=== PATIENT | female | born 2000 | race African-American/Black ===

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

== ENCOUNTER 2021-03-29 05:59 | Inpatient (IN) ==
[2021-03-29] MEDS ORDERED: BUTORPHANOL 2 MG/ML VIAL IV PRN (06:15)
[2021-03-29] MEDS ORDERED: ONDANSETRON 4 MG/2 ML VIAL IV PRN ×2 (06:15→18:24)
[2021-03-29] MEDS ORDERED: MEPERIDINE 50 MG/1 ML VIAL IV PRN (06:15)
[2021-03-29] MEDS ORDERED: LACTATED RINGERS 1,000 ML IV SCH (06:30)
[2021-03-29] MEDS ORDERED: OXYTOCIN/LR 20 UNIT/1,000 ML BAG IV ONE ×2 (06:31→18:24)
[2021-03-29 06:41] LABS: Basophils % 0.1 % (0.0-0.8); Eosinophils % 0.4 % (0.00-10.9); Hematocrit 37.1 VOL% (35.7-47.0); Hemoglobin 11.5 GM/DL (12.0-16.0); Immature Granulocytes % 0.4 %; Immature Granulocytes Absolute 0.03 #; Lymphocytes # 2.2 10*3/uL (1.4-4.0); Lymphocytes % 32.8 % (21.3-54.2); Mean Corpuscular Volume 82.3 FL (87-102); Mean Platelet Volume 9.8 FL (9.6-12.0); Monocytes % 5.2 % (1.7-12.7); Neutrophils % 61.1 % (38.7-73.9); Platelet Count 252 T/CUMM (130-400); Red Blood Count 4.51 MC/CUMM (3.8-5.5); Red Cell Distribution Width 21.6 % (9.3-17.3); White Blood Count 6.7 T/CUMM (4-12)
[2021-03-29] MEDS: OXYTOCIN/LR 20 UNIT/1,000 ML BAG IV SCH ×2 (06:50→17:17)
[2021-03-29 06:54] LABS: Alanine Aminotransferase 11 U/L (13-56); Albumin 2.5 G/DL (3.4-5.0); Alkaline Phosphatase 167 U/L (45-117); Aspartate Amino Transferase 11 U/L (0-37); Bilirubin,Total < 0.39 MG/DL (0.20-1.00); Blood Urea Nitrogen 4 MG/DL (7-18); Calcium 9.1 MG/DL (8.5-10.1); Carbon Dioxide 18 MMOL/L (21-32); Estimated Glom Filtration Rate 171 ML/MIN; Glucose 122 MG/DL (74-106); Potassium 3.5 MMOL/L (3.5-5.1); Sodium 136 MMOL/L (136-145); Total Protein 6.8 G/DL (6.4-8.2)
[2021-03-29] MEDS: CLINDAMYCIN INJ 900 MG/50 ML PREMIX IV SCH ×2 (07:17→16:04)
[2021-03-29] MEDS ORDERED: hydrOXYzine HCL 25 MG/1 ML VIAL IM PRN (09:09)
[2021-03-29] MEDS ORDERED: FAMOTIDINE 20 MG/2 ML VIAL IV ONE (09:09)
[2021-03-29] MEDS ORDERED: NALOXONE 0.4 MG/ML VIAL IV PRN (09:09)
[2021-03-29] MEDS ORDERED: LACTATED RINGERS 1,000 ML IV ONE (09:09)
[2021-03-29] MEDS ORDERED: PROMETHAZINE 25 MG/1 ML VIAL IM ONE (09:09)
[2021-03-29] MEDS ORDERED: ePHEDrine 50 MG/ML VIAL IV PRN (09:09)
[2021-03-29] MEDS ORDERED: CITRIC ACID/SODIUM CITRATE 30 ML UDCUP PO ONE (09:09)
[2021-03-29] MEDS ORDERED: diphenhydrAMINE 50 MG/1 ML VIAL IV PRN ×2 (09:09)
[2021-03-29] MEDS ORDERED: fentaNYL 2 MCG/ROPIV 0.2% EPID 100 ML EPIDURAL SCH (09:30)
[2021-03-29 11:05] LABS: Bilirubin,Urine Negative (Negative); Blood, Urine Negative (Negative); Glucose,Urine (UA) Negative (Negative); Ketones,Urine 5 mg/dL (Negative); Mucus,Urine Occasional /LPF (Occasional); Nitrite,Urine Negative (Negative); Protein,Urine Negative; RBC,Urine <1 /HPF (0-4); Squamous Epithelial Cell,Urine Occasional /HPF (0-10); Urine Appearance CLEAR (Clear); Urine Color Straw (Yellow); Urine Specific Gravity 1.002 (1.001-1.035); Urine Urobilinogen < 2.0 EU/DL (<2.0)
[2021-03-29] MEDS ORDERED: METHYLERGONOVINE 0.2 MG/1 ML AMP ONE (14:07)
[2021-03-29] MEDS ORDERED: miSOPROStoL 200 MCG TABLET ONE (14:07)
[2021-03-29] MEDS ORDERED: CARBOPROST TROMETHAMINE 250 MCG/ML AMP IM ONE (14:07)
[2021-03-29 14:47] LABS: Cord Venous Blood HCO3 21.8 MMOL/L; Cord Venous Blood PCO2 36.8 MMHG; Cord Venous Blood PO2 28.6 MMHG
[2021-03-29] MEDS: IBUPROFEN 800 MG TABLET PO PRN (18:11)
[2021-03-29] MEDS ORDERED: MEASLES/MUMPS/RUBELLA VACCINE 0.5 ML VIAL SUBCUT ONE (18:24)
[2021-03-29] MEDS ORDERED: ACETAMINOPHEN 325 MG TABLET PO PRN (18:24)
[2021-03-29] MEDS ORDERED: RHO(D) IMMUNE GLOBULIN 300 MCG SYRINGE IM ONE (18:24)
[2021-03-29] MEDS ORDERED: oxyCODONE/ACETAMINOPHEN 5-325 MG TABLET PO PRN ×2 (18:24)
[2021-03-29] MEDS ORDERED: BENZOCAINE 20%/MENTHOL 0.5% SPRAY 56 GM CAN TOP PRN (18:24)
[2021-03-29] MEDS ORDERED: DIPH/TET/ACEL PERT BOOSTER VACCINE 0.5 ML VIAL IM ONE (18:24)
[2021-03-29] MEDS ORDERED: IBUPROFEN 800 MG TABLET PO PRN (18:24)
[2021-03-29] MEDS ORDERED: LANOLIN 50% CREAM 0.3 OZ TUBE TOP PRN (18:24)
[2021-03-29] MEDS ORDERED: HYDROCORTISONE 2.5% RECTAL CREAM 30 GM TUBE TOP PRN (18:24)
[2021-03-29] MEDS ORDERED: WITCH HAZEL PADS 100/JAR TOP PRN (18:24)
[2021-03-29] MEDS ORDERED: BISACODYL 10 MG SUPP RECTAL PRN (18:24)
[2021-03-29] MEDS: DOCUSATE SODIUM 100 MG CAPSULE PO SCH (21:48)
[2021-03-30 05:55] LABS: Basophils % 0.4 % (0.0-0.8); Eosinophils % 0.5 % (0.00-10.9); Hematocrit 33.2 VOL% (35.7-47.0); Hemoglobin 10.4 GM/DL (12.0-16.0); Immature Granulocytes % 0.2 %; Immature Granulocytes Absolute 0.02 #; Lymphocytes # 2.6 10*3/uL (1.4-4.0); Lymphocytes % 31.8 % (21.3-54.2); Mean Corpuscular HGB Conc 31.3 GM/DL (32-36); Mean Corpuscular Volume 82.6 FL (87-102); Mean Platelet Volume 9.8 FL (9.6-12.0); Monocytes % 6.1 % (1.7-12.7); Platelet Count 213 T/CUMM (130-400); Red Blood Count 4.02 MC/CUMM (3.8-5.5); Red Cell Distribution Width 21.9 % (9.3-17.3); White Blood Count 8.1 T/CUMM (4-12)
[2021-03-30] MEDS: DOCUSATE SODIUM 100 MG CAPSULE PO SCH ×2 (08:19→20:37)
[2021-03-30] MEDS: IBUPROFEN 800 MG TABLET PO PRN (23:22)
[2021-03-31 07:21] VITALS: BP 104/56
[2021-03-31] MEDS: DOCUSATE SODIUM 100 MG CAPSULE PO SCH (08:46)
== END 2021-03-31 11:15 | disposition home or self-care (01) | DRG 807 ==
LOC: N.LD 05:59 → N.OB 17:53
PROVIDERS: ADMIT Specialist; ATTEND Specialist

== ENCOUNTER 2022-03-03 05:22 | Inpatient (IN) ==
[2022-03-03] MEDS ORDERED: TRANEXAMIC ACID 1,000 MG in SODIUM CHLORIDE 0.9% 100 ML IV PRN (05:51)
[2022-03-03] MEDS ORDERED: METHYLERGONOVINE 0.2 MG/1 ML AMP IM PRN (05:51)
[2022-03-03] MEDS ORDERED: miSOPROStoL 200 MCG TABLET RECTAL PRN (05:51)
[2022-03-03] MEDS ORDERED: ONDANSETRON 4 MG/2 ML VIAL IV PRN (05:51)
[2022-03-03] MEDS ORDERED: CARBOPROST TROMETHAMINE 250 MCG/ML AMP IM PRN (05:51)
[2022-03-03] MEDS ORDERED: OXYTOCIN/LR 20 UNIT/1,000 ML BAG IV ONE ×4 (05:51→14:00)
[2022-03-03 06:14] LABS: Basophils % 0.2 % (0.0-0.8); Eosinophils % 0.7 % (0.00-10.9); Hematocrit 36.5 VOL% (35.7-47.0); Hemoglobin 11.8 GM/DL (12.0-16.0); Immature Granulocytes % 0.3 %; Immature Granulocytes Absolute 0.02 #; Lymphocytes # 2.2 10*3/uL (1.4-4.0); Lymphocytes % 36.4 % (21.3-54.2); Mean Corpuscular HGB Conc 32.3 GM/DL (32-36); Mean Corpuscular Volume 82.8 FL (87-102); Mean Platelet Volume 10.4 FL (9.6-12.0); Monocytes # 0.4 10*3/uL (0.11-0.8); Monocytes % 6.5 % (1.7-12.7); Neutrophils % 55.9 % (38.7-73.9); Platelet Count 229 T/CUMM (130-400); Red Blood Count 4.41 MC/CUMM (3.8-5.5); Red Cell Distribution Width 16.7 % (9.3-17.3)
[2022-03-03 06:29] LABS: Albumin 2.7 G/DL (3.4-5.0); Bilirubin,Total 0.5 MG/DL (0.20-1.00); Calcium 9.4 MG/DL (8.5-10.1); Osmolality,Calculated 269.8 MOS/KG (273-304); Potassium 3.7 MMOL/L (3.5-5.1); Total Protein 6.9 G/DL (6.4-8.2)
[2022-03-03] MEDS ORDERED: MEPERIDINE 50 MG/1 ML VIAL IV PRN (06:30)
[2022-03-03] MEDS ORDERED: SODIUM CHLORIDE 0.9% 100 ML IV ONE (07:05)
[2022-03-03] MEDS ORDERED: TRANEXAMIC ACID 1,000 MG/10 ML VIAL ONE (07:05)
[2022-03-03] MEDS ORDERED: METHYLERGONOVINE 0.2 MG/1 ML AMP ONE (07:05)
[2022-03-03] MEDS ORDERED: CARBOPROST TROMETHAMINE 250 MCG/ML AMP IM ONE (07:05)
[2022-03-03] MEDS ORDERED: miSOPROStoL 200 MCG TABLET ONE (07:05)
[2022-03-03] MEDS: LACTATED RINGERS 1,000 ML IV SCH ×2 (07:10→08:38)
[2022-03-03] MEDS ORDERED: diphenhydrAMINE 50 MG/1 ML VIAL IV PRN ×2 (07:23)
[2022-03-03] MEDS ORDERED: hydrOXYzine HCL 25 MG/1 ML VIAL IM PRN (07:23)
[2022-03-03] MEDS ORDERED: CITRIC ACID/SODIUM CITRATE 30 ML UDCUP PO ONE (07:23)
[2022-03-03] MEDS ORDERED: NALOXONE 0.4 MG/ML VIAL IV PRN (07:23)
[2022-03-03] MEDS ORDERED: FAMOTIDINE 20 MG/2 ML VIAL IV ONE (07:23)
[2022-03-03] MEDS ORDERED: ePHEDrine 50 MG/ML VIAL IV PRN (07:23)
[2022-03-03] MEDS ORDERED: PROMETHAZINE 25 MG/1 ML VIAL IM ONE (07:23)
[2022-03-03] MEDS ORDERED: LACTATED RINGERS 1,000 ML IV SCH ×2 (07:30)
[2022-03-03] MEDS ORDERED: fentaNYL 2 MCG/ROPIV 0.2% EPID 100 ML EPIDURAL SCH (07:30)
[2022-03-03] MEDS ORDERED: TERBUTALINE 1 MG/1 ML VIAL SUBCUT ONE (09:00)
[2022-03-03] MEDS ORDERED: TERBUTALINE 1 MG/1 ML VIAL ONE (09:31)
[2022-03-03 09:50] LABS: Cord Arterial Blood HCO3 18.2 MMOL/L
[2022-03-03 09:53] LABS: Bacteria,Urine Occasional /HPF (Few); Mucus,Urine Many /LPF (Occasional); RBC,Urine 2 /HPF (0-4); Squamous Epithelial Cell,Urine Occasional /HPF (0-10)
[2022-03-03 09:53] LABS: Cord Venous Blood HCO3 19.7 MMOL/L; Cord Venous Blood PCO2 57.8 MMHG; Cord Venous Blood PO2 < 17
[2022-03-03 09:54] LABS: Bilirubin,Urine Small mg/dL (Negative); Blood, Urine Negative (Negative); Glucose,Urine (UA) Negative (Negative); Ketones,Urine >160 mg/dL (Negative); Nitrite,Urine Negative (Negative); Protein,Urine 30 mg/dL (Negative); Urine Appearance Clear (Clear); Urine Color Yellow (Yellow); Urine pH 6.5 (4.5-8.0)
[2022-03-03 09:58] LABS: Cord Arterial Blood HCO3 20.8 MMOL/L
[2022-03-03 10:00] LABS: Cord Venous Blood HCO3 21.8 MMOL/L; Cord Venous Blood PCO2 42.3 MMHG; Cord Venous Blood PO2 36.6
[2022-03-03] MEDS: IBUPROFEN 800 MG TABLET PO PRN ×2 (12:32→21:26)
[2022-03-03] MEDS: DOCUSATE SODIUM 100 MG CAPSULE PO PRN (21:26)
[2022-03-04] MEDS: IBUPROFEN 800 MG TABLET PO PRN ×2 (04:59→21:32)
[2022-03-04 05:34] LABS: Basophils % 0.4 % (0.0-0.8); Eosinophils % 0.4 % (0.00-10.9); Hematocrit 35.5 VOL% (35.7-47.0); Hemoglobin 11.2 GM/DL (12.0-16.0); Immature Granulocytes % 0.3 %; Immature Granulocytes Absolute 0.02 #; Lymphocytes # 2.7 10*3/uL (1.4-4.0); Lymphocytes % 39.6 % (21.3-54.2); Mean Corpuscular HGB Conc 31.5 GM/DL (32-36); Mean Corpuscular Volume 84.3 FL (87-102); Mean Platelet Volume 10.5 FL (9.6-12.0); Monocytes # 0.5 10*3/uL (0.11-0.8); Monocytes % 6.7 % (1.7-12.7); Neutrophils % 52.6 % (38.7-73.9); Platelet Count 176 T/CUMM (130-400); Red Blood Count 4.21 MC/CUMM (3.8-5.5); Red Cell Distribution Width 16.8 % (9.3-17.3); White Blood Count 6.7 T/CUMM (4-12)
[2022-03-04] MEDS ORDERED: WITCH HAZEL PADS 100/JAR TOP PRN (12:45)
[2022-03-04] MEDS ORDERED: HYDROCORTISONE 25 MG SUPP RECTAL PRN (12:45)
[2022-03-04] MEDS: DOCUSATE SODIUM 100 MG CAPSULE PO PRN (21:26)
[2022-03-05] MEDS ORDERED: SIMETHICONE CHEW 80 MG TABLET PO PRN
[2022-03-05] MEDS ORDERED: DIBUCAINE 1% OINT 28 GM TUBE TOP PRN (00:05)
[2022-03-05] MEDS: DOCUSATE SODIUM 100 MG CAPSULE PO PRN (08:01)
[2022-03-05] MEDS ORDERED: BISACODYL 10 MG SUPP RECTAL ONE (08:04)
[2022-03-05 13:03] VITALS: BP 128/85
== END 2022-03-05 13:25 | disposition home or self-care (01) | DRG 807 ==
LOC: N.LDOUT 05:22 → N.LD 05:25 → N.OB 16:35
PROVIDERS: ADMIT Obstetrics & Gynecology; ATTEND Obstetrics & Gynecology